=== PATIENT | female | born 1965 | race African-American/Black ===

== ENCOUNTER 2020-09-03 16:38 | Emergency (ER) | payer MEDICARE ==
[2020-09-03] MEDS ORDERED: EPINEPHrine 1MG/10ML SYRINGE 1.5IN ONE (16:39)
[2020-09-03] MEDS ORDERED: propofoL 1,000 MG in IV 1 EA IV SCH (17:20)
[2020-09-03] MEDS ORDERED: LIDOCAINE 2% 5ML JELLY UROJET TOP ONE (17:20)
--- NOTE | 2020-09-03 17:35 | REP ---
INDICATION: CHEST PAIN. COMPARISON: None. TECHNIQUE: Single portable AP view of the chest was performed. FINDINGS: There are diffuse bilateral infiltrates present. There is a [id number] right pleural effusion, with fluid tracking into the right minor fissure. There is cardiomegaly. Right hilar shadow appears prominent. I cannot exclude underlying adenopathy. Left dual lead pacemaker is noted. There is an endotracheal tube present. The tip is at the rafaela. IMPRESSION: Bilateral filtrates with right pleural effusion. Cardiomegaly. Possible right hilar adenopathy. Endotracheal tube tip is at the rafaela. <Electronically signed by Mayank Soria > 09/03/20 2310
--- NOTE | 2020-09-03 17:36 | REP ---
INDICATION: CHECK TUBE PLACEMENT. COMPARISON: 09/03/2020 5:09 p.m.. TECHNIQUE: Single portable AP view of the chest was performed. FINDINGS: Diffuse bilateral infiltrates and right pleural effusion are unchanged. Cardiomegaly is again noted. Endotracheal tube position has changed, the distal tip is now 3.2 cm above the rafaela. IMPRESSION: Endotracheal tube tip 3.2 cm above the rafaela. Otherwise no change. <Electronically signed by Mayank Soria > 09/03/20 [id number]
[2020-09-03] MEDS ORDERED: NOREPINEPHRINE BITARTRATE 8 MG in D5W 492 ML IV SCH (17:40)
[2020-09-03] MEDS ORDERED: NOREPINEPHRINE 4 MG/4 ML AMP As Ordered ONE ×2 (17:40→19:57)
[2020-09-03 17:56] LABS: ALBUMIN 3.3 GM/DL (3.2-5.2); ALT/SGPT 135 U/L (12-78); BILIRUBIN,DIRECT 0.2 MG/DL (0.0-0.2); BILIRUBIN,TOTAL 0.4 MG/DL (0.2-1.0); BLOOD UREA NITROGEN 18 MG/DL (7-18); CALCIUM LEVEL 8.5 MG/DL (8.5-10.1); CARBON DIOXIDE LEVEL 25 MEQ/L (21-32); CHLORIDE LEVEL 109 MEQ/L (98-107); CK-MB VALUE MASS < 1.0 NG/ML (<3.6); CPK CREATINE PHOSPHOKINASE 118 U/L (26-192); GLOMERULAR FILTRATION RATE 54.7 (>51); GLUCOSE, FASTING 163 MG/DL (70-100); LIPASE 154 U/L (73-393); MB/CK RELATIVE INDEX 0.85 (< OR =4); NT-PRO BNP 2342 PG/ML (<125); POTASSIUM SERUM 5.3 MEQ/L (3.5-5.1); SODIUM LEVEL 141 MEQ/L (136-145); TOTAL PROTEIN 6.9 GM/DL (6.4-8.2); TROPONIN I < 0.02 NG/ML (< 0.10)
[2020-09-03 17:57] LABS: FREE T4 0.77 NG/DL (0.76-1.46)
[2020-09-03 17:59] LABS: ABG BASE EXCESS -11.7 (-2.0-2.0); ABG HCO3 16.7 MEQ/L (22.0-26.0); ABG O2 SATURATION 94.6 % (95.0-99.0); ABG PARTIAL PRESSURE CO2 47.8 mmHg (35.0-45.0); ABG PARTIAL PRESSURE O2 92.5 mmHg (75.0-100.0); ABG STANDARD HCO3 15.3 MEQ/L (22.0-26.0); ABG TOTAL CO2 18.2 MEQ/L (22.0-29.0)
[2020-09-03] MEDS ORDERED: PIPERACILLIN/TAZOBACTAM SOD 4.5 GM in D5W MINI-BAG PLUS 50 ML IV ONE (18:00)
[2020-09-03 18:02] LABS: ABG pH (ARTERIAL) 7.162 UNITS (7.350-7.450)
[2020-09-03] MEDS ORDERED: fentaNYL 100 MCG/2 ML INJECTION (J3010) IV ONE (18:05)
[2020-09-03] MEDS ORDERED: ETHANOL ALCOHOL 98% INJ 5ML (DEHYDRATED) NEB STA (18:07)
[2020-09-03] MEDS ORDERED: NS 500 ML IV ONE (18:15)
[2020-09-03] MEDS ORDERED: FUROSEMIDE 100MG/10ML VIAL (J1940) IV ONE (18:25)
[2020-09-03 18:38] LABS: RSV AMPLIFICATION NEGATIVE (NEGATIVE)
[2020-09-03] MEDS ORDERED: DOBUTamine HCL 500,000 MCG in IV 1 EA IV SCH (18:45)
[2020-09-03 18:51] LABS: BASO % 0.4 % (0.0-1.0); EOS # 0.1 10^3/uL (0.0-0.5); EOS % 0.4 % (0.0-3.0); HEMATOCRIT 41.6 % (36.0-47.0); HEMOGLOBIN 13.1 g/dl (12.0-15.5); LYMPH # 0.7 10^3/uL (1.5-5.0); LYMPH % 6.1 % (24.0-44.0); MEAN CORPUSCULAR HEMOGLOBIN 24.3 pg (27.0-33.0); MEAN CORPUSCULAR HGB CONC 31.5 g/dl (32.0-36.5); MEAN CORPUSCULAR VOLUME 77.3 fl (80.0-96.0); MONO # 0.4 10^3/uL (0.0-0.8); MONO % 3.9 % (2.0-8.0); NEUTROPHILS # 10.1 10^3/uL (1.5-8.5); NEUTROPHILS % 88.5 % (36.0-66.0); PLATELET COUNT, AUTOMATED 187 10^3/uL (150-450); RED BLOOD COUNT 5.38 10^6/uL (4.00-5.40); WHITE BLOOD COUNT 11.4 10^3/uL (4.0-10.0)
[2020-09-03 19:04] LABS: INR 1.14; PROTHROMBIN TIME 14.9 SECONDS (12.5-14.3)
[2020-09-03 19:05] LABS: PARTIAL THROMBOPLASTIN TIME 40.3 SECONDS (24.2-38.5)
[2020-09-03 19:21] LABS: D-DIMER QUANT > 4000 ng/ml (<500)
[2020-09-03 19:52] VITALS: BP 114/78
--- NOTE | 2020-09-03 20:36 | ECGEPIP ---
[facility] - ED Test Date: 2020-09-03 Pat Name: BARRETT VILLALPANDO Department: Room: - Gender: Female Gate Person: MILEY : 1965 Requested By: ROSSY Ferrara Order Number: [id number] Reading MD: Marlen Diamond Measurements Intervals [place] Rate: 85 P: 84 AL: 216 QRS: -79 QRSD: 134 T: 94 QT: 398 QTc: 473 Interpretive Statements Sinus rhythm with sinus arrhythmia with 1st degree AV block with occasional premature ventricular complexes Possible Left atrial enlargement Left axis deviation Right bundle branch block Inferior infarct , age undetermined Anteroseptal infarct , age undetermined T wave abnormality, consider ischemia No prior Electronically Signed on 09-03-2020 20:35:59 EDT by Marlen Diamond
--- NOTE | 2020-09-03 22:50 | CCN ---
CRITICAL CARE NOTE DATE: 09/03/2020 START TIME: 1800 STOP TIME: 1923 SUBJECTIVE: I was called to the ER to assist in the management of Gisele Palomino. Patient has been examined. Chart reviewed. I spoke at length with the nursing staff as well as Dr. Soria. Initially, this is a 55-year-old female who was found to have significant cardiomyopathy, has an AICD in place, we were able to get records from [facility]. Last EF 20%. She summoned EMS today complaining of shortness of breath. She was found unresponsive. Found in [facility]. Her code was worked for quite some time. They were able to get return of circulation here in the ER. Chest x-ray shows florid pulmonary edema with severe cardiomegaly. On my arrival, she had frothy bloody secretions, sats in the 70's and a blood pressure in the 70's as well. Alcohol was placed on the endotracheal tube with some improvement in her pulmonary edema secretions. Multiple ventilator settings were attempted. Intermittently she had to be bagged. Eventually with the addition of Levophed as well as Dobutamine and multiple ventilator manipulations being made, we are able to achieve a blood pressure with a mean arterial pressure of approximately 67. Heart rate of 84 with a sinus mechanism and currently oxygen saturation of 90 to 91% on a PRBC rate of 30, tidal volume 550, PEEP of 15 and FIO2 of 100%. MOST RECENT LABORATORIES: White blood cell count 11.4, hemoglobin 13.1, platelet count 187,000. SARS-CoV2 PCR as well as the rest of her viral panel was negative. Blood gas obtained prior to my arrival showed pH of 7.162, pCO2 of 47.9 and pO2 of 92.5. PHYSICAL EXAMINATION: Currently she is minimally responsive. She has some intermittent myoclonic activity. Endotracheal tube and oral gastric tube are in place. Chest originally had marked diffuse crackles, which have improved at this point, she still has dependent crackles. Body habitus is large with weight of 171 kilograms. Cardiac exam shows an AICD in the left pectoralis region. Cardiac exam is quite distant. Peripheral pulses are diminished but palpable. Abdomen is morbidly obese with old scars well healed. Extremities show no cyanosis or clubbing. She does have a left femoral CVP in place. MOST PRESSING PROBLEMS REQUIRING MY IMMEDIATE PRESENCE AT THE BEDSIDE: 1. Hypoxemic respiratory failure. 2. Florid pulmonary edema. 3. Underlying cardiomyopathy; non-ischemic. 4. Underlying AICD. 5. Cardiogenic Shock At this point, she is being transferred to [facility] for a higher level of care as currently she exceeds the capabilities here if she has any chance of survival. Certainly risk for permanent neurologic injury exists, but we are still in the resuscitation phase. Given that we have been able to at least maintain a reasonable oxygen saturation as well as blood pressure and heart rate, I believe she is as stable as we can get her for transfer to higher level of care. This has all been coordinated by Dr. Soria. At this point, she remains quite critically ill. There is a high likelihood she may not survive this event, but I believe her best chance is to be transferred to a tertiary care center where she may benefit from either balloon pump, ECMO, or similar device. I left the bedside at 1924 hours. 84 minutes of critical care time was spent at the bedside not including procedures. TASNEEM
== END 2020-09-03 19:55 | disposition short-term general hospital (02) ==
LOC: M ED 16:38 → EDSEX 16:38 → EDBD 16:38 → M ED 19:55
DX: R57.0 Cardiogenic shock (principal); I46.2 Cardiac arrest due to underlying cardiac condition; R94.31 Abnormal electrocardiogram [ECG] [EKG]; I51.7 Cardiomegaly; J96.01 Acute respiratory failure with hypoxia; J81.0 Acute pulmonary edema; Z95.810 Presence of automatic (implantable) cardiac defibrillator; E78.5 Hyperlipidemia, unspecified; Z91.040 Latex allergy status; Z79.899 Other long term (current) drug therapy
CPT/HCPCS: 36415; 36555; 51702; 71045; 80048; 80076; 82550; 82553; 82803; 83605; 83690; 83880; 84439; 84443; 84484; 85025; 85379; 85610; 85730; 87631; 92950; 93005; 93041; 96365; 96366; 96367; 96375; 99285; J1250; J1940; J3010